=== PATIENT | female | born 1960 | race Caucasian/White ===

== ENCOUNTER 2018-12-14 18:51 | Inpatient (IN) | payer OTHER ==
[~2018-12-14] VITALS: Ht 152.4 cm; Wt 73.9 kg
[2018-12-14 19:17] VITALS: BP 155/110
[2018-12-14 20:57] LABS: AMP/METHAMP Negative (Negative); BARBITURATES Negative (Negative); BENZODIAZEPINES POSITIVE (Negative); COCAINE Negative (Negative); METHADONE Negative (Negative); OPIATES Negative (Negative); PCP Negative (Negative)
[2018-12-14 21:30] LABS: ABSOLUTE NEUTROPHILS 5.5 thou/uL (1.4-8.2); BASOPHILS 0.5 % (0.0-2.0); HEMATOCRIT 41.2 % (37.0-47.0); HEMOGLOBIN 14.1 gm/dL (12.0-15.0); LYMPHOCYTES 29.1 % (24.0-44.0); MCH 31.3 pg (26.0-34.0); MCHC 34.2 g/dL (28.0-37.0); MCV 91.6 fL (80.0-100.0); MONOCYTES 8.1 % (1.0-8.0); PLATELET COUNT 180 thou/uL (150-400); POLYS 62.3 % (36.0-66.0); RDW 14.8 % (10.5-14.5); WBC 8.9 thou/uL (4.0-11.0)
--- NOTE | 2018-12-14 21:39 | NUR ---
PATIENT REMAINS IN TRIAGE AREA
[2018-12-14 21:43] LABS: CALCIUM 10.3 mg/dL (8.5-10.1); CREATININE 0.8 mg/dL (0.6-1.0); POTASSIUM 3.7 mmol/L (3.5-5.1)
[2018-12-14] MEDS ORDERED: QUETIAPINE FUM100 MG PO (22:00)
[2018-12-14] MEDS ORDERED: REMERON15 MG PO (22:01)
[2018-12-14] MEDS ORDERED: PROZAC 20 MG20 MG PO (22:01)
[2018-12-14] MEDS ORDERED: DIVALPROEX SOD500 M1 PO (22:02)
[2018-12-14] MEDS ORDERED: PROPRANOLOL 1010 MG PO (22:02)
[2018-12-14] MEDS ORDERED: TRAZODONE 150150 M1 PO (22:03)
[2018-12-14] MEDS ORDERED: NORVASC10 MG PO (22:03)
[2018-12-14] MEDS ORDERED: ERGOCALCIF50000 UNIT PO (22:04)
[2018-12-14] MEDS ORDERED: ST. JOSEPH ASPI81 M1 PO (22:05)
[2018-12-14] MEDS ORDERED: NICOTINE LOZENGE4 MG DISSOLVE (22:05)
[2018-12-14] MEDS ORDERED: TYLENOL325 MG PO (22:06)
[2018-12-14 22:31] VITALS: BP 155/110
[2018-12-14 23:24] VITALS: BP 171/114
[2018-12-14 23:46] VITALS: BP 188/130
[2018-12-15 01:03] VITALS: BP 188/130
--- NOTE | 2018-12-15 01:20 | NUR ---
PT ADMITTED PER CART AT 2129. ANXIOUS AND DEPRESSED. WANTING XANAX. NOTIFIED. KLONOPI 0.5 MG PO AND DEPAKOTE 500MG PO TONIGHT. ABLE TO PROVIDE A CURSORY HISTORY, BUT HAS SOME MEMORY IDSSUES SHE IS POST CVA. AMBULATORY AND ABLE TO TOILET WITH ASSIST. ACCOMPANIED BY DAUGHTER WHO PROVIDED SOME HISTORY. RESTING COMFORTABLY AT THIS TIME.
[2018-12-15 08:18] VITALS: BP 154/80
--- NOTE | 2018-12-15 09:09 | EKG ---
[place] [address] [address] [facility] [place] [address] ELECTROCARDIOGRAM REPORT Name: TARI SCHULZ Room #: 518[facility] ADM IN M.R.#: [id number] ������������������ Admission: 12/14/18 ������������������ Attend Phys: Alf Momin DO Discharge: ������������������ Date of : 56 Report #: [id number] ����������������������������������������������������������������� [id number] THIS REPORT FOR: //name// [facility] ED Test Date: 2018-12-14 Test Time: 21:28:28 Pat Name: TARI SCHULZ Department: Room: [facility] Gender: F Supervising Nurse: AMILCAR : 1960 Requested By: Sheron Chapa Order Number: [id number] MD: Cuba Owusu Measurements Intervals Roosevelt Rate: 78 P: 43 FL: 146 QRS: -19 QRSD: 95 T: 3 QT: 346 QTc: 395 Interpretive Statements Sinus rhythm Borderline left axis deviation Borderline T wave abnormalities No previous ECG available for comparison Electronically Signed On 12-15-2018 9:09:35 CDT by Cuba Owusu [email or web address] ��������������������������������������������� <ELECTRONICALLY SIGNED> ���������������������������������������� By: Cuba Owusu MD, [facility] ��������������������������������������������� 12/15/18908 27 27 Cuba Owusu MD, FACC /EPI
[2018-12-15 11:53] VITALS: BP 154/80
--- NOTE | 2018-12-15 13:50 | NUR ---
ASSUMED PATIENT CARE AT 0715 A.M. THIS DATE. PATIENT SITTING CALMLY IN THE LARGE GROOUP ROOM, AT DR TABLE AT THAT TIME. HOWEVER, PATIENT ATE ONLY 25% OF BREAKFAST. SHE THEN BECAME OBVIOUSLY ANXIOUS, SHAKING AT HER HANDS, STATING "I NEED SOMETHING FOR ANXIETY." NURSE EDUCATED PATIENT THAT SHE HAD SCHEDULED ANTI-ANXIETY MEDICATION AND WAS ADMINISTERED CLONEXEPAM FOR ANXIETY AT 0600. NEXT DOSE AT 1400. PATIENT BECAME INCREASINGLY ANXIOUS, INCLUDING CRYING, REPEATEDLY ASKING FOR SOMETHING FOR ANXIETY. AT APPROXIMATELY 11:15 AM, NEW ORDER FOR LOREZEPAM 0.5 MG TIMES ONE. NURSE ADMINISTERED ORDERED DOSE AT 11:25, AFTER ACKNOWLEDGING THE ORDER. PATIENT WAS OBSERVED LYING ON SOFA IN LARGE GROOUP ROOM AT THAT TIME; NURSE HAD HER SIT UP AND TAKE HER MED, THEN REQUESTED THAT SHE GO TO HER ROOM TO LIE DOWN IF TIRED. PATIENT COMPLIED AT THAT TIME, AND IS NOW UP FOR SW GROUP THERAPY IN SMALL GROUP ROOM.
--- NOTE | 2018-12-15 18:18 | NUR ---
PATIENT HAD ELAVATED BLOOD PRESSURE OF 155/122, PULSE 104 LEFT ARM, AND 158/[address] BAY NOTIFIED, ONE TIME ORDER FOR CLINIDINE 0.1MG NOW NOTED AND CARRIED FORWARD.
--- NOTE | 2018-12-15 19:55 | NUR ---
ASSUMED CARE OF THE PT AT 1945PM. THE PT HAS BEEN LYING ON THE COUCH SLEEPING SINCE THIS CONFERENCE COORDINATOR CAME ON DUTY. DENIES ANY PAIN AT THIS TIME. REMIANS ON 12 MINUTE CHECKS FOR HER SAFETY.
[2018-12-15 20:05] VITALS: BP 135/83
--- NOTE | 2018-12-15 23:19 | H ---
[facility] [place] [address] HISTORY AND PHYSICAL Name: TARI SCHULZ Room #: 518B-B ADM IN M.R.#: [id number] Admission: 12/14/18 ������������������ Attend Phys: Alf Momin DO Discharge: ������������������ Date of : 56 Report #: [id number] THIS REPORT FOR: //name// CC: Alf Momin Roland Akkulugari DATE OF SERVICE: 12/15/2018 INPATIENT PSYCHIATRIC EVALUATION ATTENDING PHYSICIAN: Alf Momin DO ELECTRIC REFRIGERATOR SERVICER: Giorgi Whitaker MD REASON FOR ADMISSION: Presenting from the [facility] due to "erratic behavior." They did not feel equipped to manage. SNF staff called the patient's daughter stating she needs to be seen in ED until she could be placed in other facility tomorrow. The patient's daughter felt she appeared manic last week and is concerned she may be withdrawing from benzodiazepines, states her Xanax was stopped one week ago and she was prescribed Klonopin in its place. HISTORY OF PRESENT ILLNESS: This is a 58-year-old female sent from the [facility] to the Emergency Room at [facility]. The patient is at a nursing facility in [place], they were seeking Geriatric-Psychiatry evaluation. The patient interestingly had a similar episode to this in 07/2018 when she was admitted medically at [facility]. She was seen by their sealed psychiatrist, Dr. Noonan and his colleagues. The patient reports about an 8-month history at her current nursing facility the issues surrounding why she continues to have trouble there is unclear. From interview with the patient, she is very anxious and she is seeking Xanax. According to her, she has been on Xanax 0.5 mg 4 times a day. I did speak with the patient's daughter, Dorcas Zapata. The patient was seen by her outpatient psychiatrist, Dr. Gaspar, he is a resident in [facility] around 12/03/2018 and apparently orders were given to switch her from Xanax to clonazepam and it is unclear if that was carried out. Nonetheless, the patient has had a number of witt behavioral issues including on 12/05/2018 attempting to catch a cab to go to her [id number], they called her daughter, Dorcas, advised this was not a good deal. In addition, the patient had increased anxiety. On 12/03/2018, she was reportedly started on Risperdal at bedtime, showing improvement. On 12/09/2018, resident had increased confusion, tearfully, unbalanced at times and that was the last nursing note I have other than the house physician requesting to be seen by Psychiatry for adjustment of medication. REVIEW OF SYSTEMS: Review of systems for this patient is somewhat difficult per my interview today in the ER. [address] [address] HISTORY AND PHYSICAL Name: TARI SCHULZ Room #: 518B-B ADM IN M.R.#: [id number] Admission: 12/14/18 ������������������ Attend Phys: Alf Momin DO Discharge: ������������������ Date of : 56 Report #: [id number] CONSTITUTIONAL: Denies fever or chills. EYES: Denies blurry vision. HENT: Denies runny nose or sore throat. CARDIOVASCULAR: Denies chest pain. RESPIRATORY: Denies shortness of breath. GASTROINTESTINAL: Denies abdominal pain. GENITOURINARY: Denies dysuria or hematuria. MUSCULOSKELETAL: Denies joint pain. SKIN: Denies rash. NEUROLOGIC: Denied weakness. She was using a walker. Psychiatrically, reported severe anxiety. MEDICATIONS: At the nursing facility are as follows; reportedly Seroquel 100 mg at bedtime, mirtazapine 50 mg at bedtime, fluoxetine 20 mg p.o. daily, Depakote 500 mg p.o. daily, propranolol 10 mg p.o. b.i.d., amlodipine mesylate 10 mg p.o. daily, trazodone 150 mg p.o. at bedtime, ergocalciferol 50,000 international units p.o. q. 7 days, nicotine lozenge, aspirin, acetaminophen 650 p.o. q. 6 hours p.r.n. Additional history from her [facility] records; she has been diagnosed with depression, bipolar disorder, also reportedly schizoaffective disorder, received treatment at [facility] for years, Dr. Gaspar is her doctor. She was on Depakote for seizure and was on Prozac. She has reported history of mood swings; reports suicidal thoughts in the past, but never made attempt. Last hospitalization prior to her 07/2018 admission at [facility] was 05/2018 at for depression and mood swings. SUBSTANCE USE HISTORY: Remote history of drinking alcohol, she states in her 30s. She smokes 1 pack a day. Interestingly, in the [facility] notes, she last used alcohol a week prior to her [facility] admission and according to [facility] was minimizing the extent of her amphetamine use. Also, interestingly at that time in July, she reported she used amphetamines twice with her brother. LEGAL HISTORY: Unremarkable. History of violence denied. MEDICAL HISTORY: Essential hypertension, tobacco use disorder. She had delirium when she was found down and brought to [facility] in 07/2018. ALLERGIES: LITHIUM, TETANUS AND DIPHTHERIA TOXOIDS. SOCIAL HISTORY: She has been living in a half-way in the last 6 months at the [facility], has a payee, has 2 children, her son is in [place]. Her daughter is aware she is in the hospital. PROTECTIVE FACTORS: She has payee on social security disability. Reportedly, had a case management at [facility] [address] [place] [place] [address] HISTORY AND PHYSICAL Name: TARI SCHULZ Room #: 518B-B ADM IN [facility].#: [id number] Admission: 12/14/18 ������������������ Attend Phys: Alf Momin, Discharge: ������������������ Date of : 56 Report #: [id number] WEAKNESSES: Substance use history, noncompliance, difficulties with facility working with family. It should be noted the final psychiatry note from her 07/2018 hospitalization at [facility], the patient does not appear to have cognitive ability to make decision to leave against medical advice. They advised discontinuing fluoxetine, discontinuing alprazolam, starting sertraline, continuing trazodone, starting Seroquel 25 mg q. 4 hours p.r.n., continue Depakote 500 mg daily. LABORATORY DATA: Laboratories this admission, CBC; white count 8.9, H and H 14.1 and 41.2, platelet count 180,000. Chemistry; sodium 136, potassium 3.7, chloride 97, bicarb 27, BUN 9, creatinine 0.8, glucose 134, calcium 10.3. Toxicology; Depakote level was 99, serum alcohol less than 10. PHYSICAL EXAMINATION: VITAL SIGNS: Today, temperature 36.3, pulse rate 76, respirations 18, BP 154/80. MUSCULOSKELETAL: Ambulates with walker, somewhat cautious gait. MENTAL STATUS EXAM: This is a well-developed, disheveled female appearing at least stated age. Attention intact. Concentration limited. Speech, normal volume, increased rate, normal tone. Thought process is linear, focused on benzodiazepines. Psychomotor agitation. No psychomotor retardation. Mood and affect was congruent, dysphoric, anxious, irritable. Memory not formally tested, known to be impaired. Denied SI, HI. Reported auditory hallucinations prior to start of Risperdal, but was vague about this. Insight limited. Judgment limited. Fund of knowledge below average. FORMULATION: A 58-year-old female brought from nursing facility to [facility] for increased anxiety and behavioral problems. 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 PLAN: Evaluate, stabilize, and obtain collateral. At this point, the patient has no valid decision maker and her ability to give consent is certainly in question. Regarding her current medications, I have increased her bedtime quetiapine to 150 mg. She is getting 25 mg b.i.d. during the day of Seroquel. We tried a test dose of lorazepam 0.5 mg; otherwise, she is getting clonazepam 0.5 mg 4 times a day, so I would like to limit her getting multiple benzodiazepines. She is on Inderal 10 mg twice a day, we will have to watch her heart rate; docusate; amlodipine 10 mg daily. I have asked the social media marketing manager to [facility] [address] [place] [address] HISTORY AND PHYSICAL Name: TARI SCHULZ Room #: 518B-B ADM IN M.R.#: [id number] Admission: 12/14/18 ������������������ Attend Phys: Alf Momin DO Discharge: ������������������ Date of : 56 Report #: [id number] look into a family meeting later in the week with her daughter and her son by phone. ESTIMATED LENGTH OF STAY: 10-14 days. Time spent on interview, review of records and coordination of care of this patient was approximately 90 minutes. ��������������������������������������������� <ELECTRONICALLY SIGNED> ���������������������������������������� By: Alf Momin DO ��������������������������������������������� 12/15/18 2319 1340 [id number] Alf Momin DO /nt
[2018-12-15 23:58] VITALS: BP 120/62
--- NOTE | 2018-12-16 03:25 | NUR ---
THE PT DID GET UP TO TAKE HER MEDICATIONS EARLIER IN THE SHIFT, WALKED AROUND THE UNIT, THEN WENT BACK TO BED. DURING THE NOC SHIFT, SHE CAME OUT OF HER ROOM, WALKING WITH HER WALKER X 1, THEN CAME OUT OF HER ROOM WITHOUT HER WALKER, ASSISTED HER BACK TO BED WITH THE ASSISTANCE OF TWO. BOTH TIMES SHE CAME OUT OF HER ROOM WITH HER EYES CLOSED.
--- NOTE | 2018-12-16 06:36 | NUR ---
THE PT SLEPT 7 HOURS LAST NIGHT. THE PT REMAINS SEDATED THIS AM, HELD HER CLONIPINE THIS AM.
[2018-12-16 14:00] VITALS: BP 118/82
--- NOTE | 2018-12-16 16:55 | NUR ---
SW completed SLUMS. Pt was very emotional, and crying due to her scoring 12/30 which is catergorize a Major Neurocognitive Disorder. Pt is afraid that she will at young age as her father. Pt stated that she wanted to leave with her son-yo, and daughter in go smoke a cigarette. Pt daughter stated that she have to go into a memory care unit. Pt stated that she does not want to alone. SW provided pt daughter with my contact information to assist withi finding nursing facility. SW will follow-up with pt upon discharge.
--- NOTE | 2018-12-16 17:00 | NUR ---
ELLEN met with pt daughter, and Dr. Momin concerning diagnosis, and temporarily placement. Pt daughter stated that she will be attending [facility] assisted living to see if she will be able to stay there for two months, and then move her into long-term placement or to the with her. SW provided my contact information that I may send a referral to the nursing facility. ELLEN will follow-up with pt upon discharge.
[2018-12-16 19:59] VITALS: BP 128/91
--- NOTE | 2018-12-16 21:36 | NUR ---
ASSUMED CARE OF THE PT AT 2000 PM. THE PT HAS BEEN SLEEPING IN THE DAYROOM. ALERT ET ORIENTED X 2. MAKES NEEDS KNOWN. WALKS WITH A STEADY GAIT, USES HER WALKER. DENIES SI/HI, ANXIETY AND DEPRESSION. DENIES A/V HALLUNICATIONS. REMAINS ON 12 MINUTE CHECKS.
--- NOTE | 2018-12-17 04:15 | NUR ---
THE PT HAS BEEN SLEEPING MOST OF THE NIGHT, BUT DOES GET UP TO USE THE BATHROOM FREQUENTLY, HAS AN UNSTEADY GAIT. REMAINS ON 12 MINUTE CHECKS.
--- NOTE | 2018-12-17 06:03 | NUR ---
THE PT SLEPT 6 HOURS LAST NIGHT.
[2018-12-17 07:45] VITALS: BP 101/52
[2018-12-17 08:30] VITALS: BP 122/89
--- NOTE | 2018-12-17 08:30 | NUR ---
CLIENT STATED SHE HAS ALZHIEMERS DZ AND HER FATHER FROM IT AND IT WAS HARD. SHE IS UPSET ABOUT HER DIAGNOSIS. UP AD ALEA. SLOW WALK ALMOST LIKE PARKINSONS. DENIES ANY PAIN TODAY. LUNGS CLEAR.
[2018-12-17 09:00] VITALS: BP 122/89
--- NOTE | 2018-12-17 10:30 | NUR ---
CLIENT APPOLIGIZED TO NURSE ABOUT CURSING AT HER YESTERDAY.
--- NOTE | 2018-12-17 13:55 | NUR ---
CLIENT LYING ON COUCH IN DINNING ROOM, DIDN'T PARTICIPATE WITH SOCIAL GROUP TODAY.
[2018-12-17 15:08] VITALS: BP 122/89
--- NOTE | 2018-12-17 15:50 | NUR ---
PT WANTED TO USE THE PHONE, SHE CALLED THE POLICE AND WANTED SOMEONE TO PICK HER UP AND GO OUTSIDE AND SMOKE. PT HANDED THIS NURSE THE PHONE AND IT WAS LOCAL POLICE DEPARTMENT. DR. VELEZ AWARE AND ORDERS OBTAINED FOR NO PHONE CALLS FOR 24 HOURS. ALSO RECIEVED ORDER FOR NICOTINE REPLACEMENT.
--- NOTE | 2018-12-17 15:58 | NUR ---
Pt was very emotional today. Pt called her daughter in told her that she will once she leaves here due to her not wanting to blunt with Dementia. Pt stated that she would like to smoke a cigarette one last time before she leaves this earth. Pt begin cursing at her daughter once the the daughter explained that she will not , and she unable to smoke a cigarette due to her been in the hospital. Pt begin throwing the phone on the social media developer desk, and walked out the office cursing. Pt stated that she is been held against her will, and she want to go home. SW de-escalate the situation by explaining to the pt that she will go home once her medication is reguluated, and the family find a fdc for her. SW explained that she is suffering from Dementia, and depression. SW stated that she will have another therapy session on Friday, December 21, 2018.
--- NOTE | 2018-12-17 17:00 | NUR ---
OFFERED PT NICOTINE GUM. PT REFUSED AT THIS TIME AND STATED SHE WAS GOING TO TAKE ONE IN THE MORNING. SHE WANTED TO LAY DOWN AND REST ON COUCH.
[2018-12-17 19:32] VITALS: BP 150/105
--- NOTE | 2018-12-17 22:20 | NUR ---
ORIENTED X3, SAYS, "I have alzheimers". TOOK ALL MEDS EXCEPT FOR COALACE. DENIES BM TODAY, REPORTS HAVING ONE YESTERDAY. REQUESTED TO USE PHONE SEVERAL TIMES. REMINDED THAT SHE IS NOT ALLOWED TO USE PHONE FOR 24 HOURS DUE TO CALLING THE POLICE FOR A NON EMERGENCY SITUATION.
--- NOTE | 2018-12-18 04:55 | NUR ---
UP AND AMBULATING IN THE HALLS AND SITTING OR LYING ON THE COUCH IN THE DAY ROOM.
[2018-12-18 07:00] VITALS: BP 29/84
[2018-12-18 10:46] VITALS: BP 126/84
[2018-12-18 11:33] VITALS: BP 126/84
--- NOTE | 2018-12-18 13:41 | NUR ---
PATIENT SUSPICIOUS ABOUT MEDICATIONS THIS AM; HOWEVER, AFTER EXPLAINING MEDICATIONS BEING ADMINISTERED, COMPLIANT WITH MEDICATIONS. ATE PARTIAL BREAKFAST. ALSO ATE ABOUT 50% OF LUNCH, THEN BECAME ANGRY AND DEMANDING TO GO HOME. DR. VELEZ SPOKE TO PATIENT; HOWEVER, SHE REQUESTED TO BE RELEASED AMA. SHE THEN AGREED TO ALLOW DR. VELEZ TO SPEAK WITH HER DAUGHTER BEFORE DECISION ON DISCHARGE. CONTINUE TO MONITOR.
--- NOTE | 2018-12-18 18:11 | NUR ---
PATIENT HAS NOT REQUESTED ANY NICORETTE GUM THIS SHIFT. NURSE OFFERED GUM AT 1800, PATIENT DECLINED OFFER. PATIENT HAS BEEN DROWSY THROUGHOUT THE DAY, OFTEN LYING ON SOFA IN D.R., NAPPING.
[2018-12-18 19:31] VITALS: BP 114/79
--- NOTE | 2018-12-18 20:16 | NUR ---
ASSUMED CARE @ 19:15. ON COUCH LYING DOWN IN DAY ROOM. AWAKENED TO VOICE AND ANSWERED ASSESSMENT QUESTIONS WITH "I GOT ALZHEIMERS, WHEN WILL I ?" A&OX3 DOES NOT KNOW THAT SHE IS AT [facility]. DOES STATE THAT SHE IS IN REHAB. LUNGS CTA, HRRR, ABD NORMOACTIVE.
--- NOTE | 2018-12-19 03:09 | NUR ---
IN BED, EYES CLOSED, RESPIRATIONS EVEN AND UNLABORED.
--- NOTE | 2018-12-19 08:00 | NUR ---
PT UP THIS AM. NO C/O PAIN. WALKING WITH SHUFFLED GAIT. EATING BREAKFAST. AFTER BREAKFAST LYING ON COUCH IN DINNING ROOM. UNALBE TO GIVE MEDS DUE TO SLEEPING.
[2018-12-19 09:00] VITALS: BP 130/79
--- NOTE | 2018-12-19 10:00 | NUR ---
JOSAFAT WOKE UP PT FOR COMMUNION. SHE ACCEPTED. ADM MEDS AT THIS TIME. WANTING DAUGHTER TO VISIT.
--- NOTE | 2018-12-19 10:30 | NUR ---
TALKED TO DAUGHTER ON PHONE AND WAS APPROPRIATE. DAUGHTER STATED SHE COMING TO SEE HER AT 4PM.
[2018-12-19 11:01] VITALS: BP 130/79
--- NOTE | 2018-12-19 15:03 | NUR ---
PT COORAPERATING IN GROUP THIS AFTERNOON.
[2018-12-19 20:11] VITALS: BP 114/78
--- NOTE | 2018-12-19 20:56 | NUR ---
ASSUMED CARE @ 19:30. IN BED, AROUSED EASILY AND A&O X 2-3. SUGGESTED THAT SHE CHANGE INTO NIGHT CLOTHES AND BRUSH TEETH BEFORE GOING TO BED FOR THE NIGHT. PROVIDED HOSPITAL GOWN AND PIJAMA PANTS. PATIENT DRESSED IN NIGHT CLOTHES AND BRUSHED TEETH. SAYS THAT SHE IS HAPPY, IS WORRIED THAT HER DAUGHTER DID NOT COME SEE HER TODAY. REMINDED THAT SHE TALKED TO DAUGHTER WHO SAID THAT SHE NEEDED TO GOTO ONE OF THE [employer] SPORTS EVENTS. ABLE TO NAME HER 3 GRANDCHILDREN AND DAUGHTER BY NAME.
[2018-12-20 03:00] VITALS: BP 114/78
--- NOTE | 2018-12-20 08:27 | NUR ---
PATIENT'S VALPORIC ACID LEVEL ON 12/18 33 (L). PATIENT CURRENTLY TAKING 1,250 MG OF DEPAKOTE AT HS.
[2018-12-20 09:49] VITALS: BP 102/73
--- NOTE | 2018-12-20 12:10 | NUR ---
Date of Admission: 12/14/18 Date of Activity Therapy Assessment:12/18/18 Activity Goal:To increase leisure awareness and positive coping skills to aid in frustration tolerance and impulse control. Initial Goal:To attend 1 group per day Weekly progress towards goal: On track with attendance, but not participation level. Group participation level: Minimal Behaviors observed: Poor boundaries with peers. Easily distracted. Sleeping during group. Plan: No change towards goal
--- NOTE | 2018-12-20 12:36 | NUR ---
PATIENT UP FOR BREAKFAST AND LUNCH, ATE 100% OF BOTH OF EACH. COMPLIANT WITH MEDICATIONS THIS A.M. LIES DOWN IN BETWEEN MEALS. PARTICIPATED IN MORNING GROUP. CALLED THOMAS CLARKE, AT THIS TIME. HAD ALSO CALLED HER THIS A.M. STAFF MONITORS CALLS TO ENSURE THAT SHE DOES NOT MAKE INAPPROPRIATE CALLS ([phone]). CONTINUE TO MONITOR.
[2018-12-20 19:24] VITALS: BP 127/78
--- NOTE | 2018-12-20 19:51 | NUR ---
ASSUMED CARE OF THE PT AT 1945 PM. THE PT WAS SITTING IN THE BED WHEN THIS RECORDS CLERK CAME ON DUTY. CURRENTLY SHE IS SITTING IN GROUP AT THIS TIME. ALERT ET ORIENTED X 3. HAS BEEN ASKING FOR HER MEDICATIONS, INSTRUCTED THE PT THAT SHE COULD NOT GET THEM UNTIL AFTER GROUP. WALKS WITH A STEADY GAIT. DENIES SI/HI, ANXIETY, DEPRESSION, A/V HALLUNICATIONS. REMAINS ON 12 MINUTE CHECKS.
--- NOTE | 2018-12-21 03:09 | NUR ---
THE PT HAS BEEN UP AND DOWN FROM HER BED X 4, SO FAR THIS NOC SHIFT. THE BED ALARM KEEPS GOING OFF AND ALERTING STAFF. SHE WALKS WITH AN UNSTEADY GAIT. REMAINS ON 12 MINUTE CHECKS.
--- NOTE | 2018-12-21 06:07 | NUR ---
THE PT SLEPT 7 HOURS LAST NIGHT.
[2018-12-21 07:05] VITALS: BP 111/84
[2018-12-21 14:20] VITALS: BP 102/76
[2018-12-21 20:03] VITALS: BP 110/79
--- NOTE | 2018-12-22 05:54 | NUR ---
PATIENTS CARE WERE ASSUMED AT SHIFT CHANGE. PATIENT WAS ASSESSED AND MEDS WERE PASSED. HOURLY ROUNDING WAS DONE AND PATIENT DID APPER TO BE SLEEPING. PATIENT DID SLEEP EIGHT HOURS THIS SHIFT. THE BED IS IN A LOW AND LOCKED POSITION. THE BED ALARM IS ON.
--- NOTE | 2018-12-22 07:34 | NUR ---
Assumed care of patient, awakens easily, ambulating in [place], requesting phone to call dtr. Pt informed that dtr requested no calls from her until afternoon. Denies pain or discomfort at this time.
[2018-12-22 08:39] VITALS: BP 119/81
[2018-12-22] MEDS ORDERED: DEPAKOTE ER500 MG PO (10:14)
[2018-12-22] MEDS ORDERED: DEPAKOTE ER250 MG PO (10:15)
[2018-12-22] MEDS ORDERED: SEROQUEL 100 M100 M1 PO ×2 (10:15→10:16)
[2018-12-22] MEDS ORDERED: ZOFRAN 4 MG ORAL4 MG DISSOLVE (10:17)
[2018-12-22] MEDS ORDERED: PEPCID20 MG PO (10:17)
[2018-12-22] MEDS ORDERED: COLACE 100 MG100 MG PO (10:17)
--- NOTE | 2018-12-22 11:17 | NUR ---
Patient Name: TARI SCHULZ Admission Date: 12/14/18 DISCHARGE PLAN: Pt will be discharge to [facility]. Care Assessment: Pt was assessed by Dr. Momin, and he diagnose with Major Neurocognitve Disorder. Pt will need assistance with care, and need a memory care unit. Level II Assessment: None Transportation: Pt will be transported by the nursing facility through [facility]. Special Instructions/Notes: DISCHARGE TO FACILITY: Memory Care Unit. Facility: [facility] Fax: Address: [address] [place] [address] Contact Name: Kevin PCP: [facility] Facility medical provider Psychiatrist: [facility] facility psychiatrist
--- NOTE | 2018-12-22 11:28 | NUR ---
1100: Shower completed, inventory sheet done with patient, dc instructions reviewed with patient. Dc instructions prepared to send with patient to [facility]. 1128: Attempted to call report to [facility], message left with Christal to call [facility] back to rec report.
--- NOTE | 2018-12-22 13:16 | NUR ---
DC via [employer], w/c used for dc to transportation, scripts, instructions and personal belongings with patient.
--- NOTE | 2018-12-24 14:42 | D ---
[facility] [place] [address] DISCHARGE SUMMARY Name: TARI SCHULZ Room #: 518B-B [facility] M.R.#: [id number] Admission: 12/14/18 ������������������ Attend Phys: Alf Momin DO Discharge: 12/22/18 ������������������ Date of : 56 Report #: [id number] THIS REPORT FOR: //name// CC: Alf Momin Roland Akkulugari DATE OF SERVICE: 12/22/2018 ATTENDING: Alf Momin DO. HOSPITALIST: At the time of discharge, Parish Johnson MD. 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 MEDICAL COMORBIDITIES: At the time of discharge, hypertension, nausea, GERD. DISCHARGE PLAN: Discharge back to the [facility] facility. She already had essentially been in memory care there. She has no DPOA or guardian. The patient will need 21/04 supervision. She has not had a followup blood level since level of 33, recommending that to be done of this week at 1800 hours. LABORATORY RESULTS: This admission CBC: H and H 14.1 and 41.2. White count 8.9, platelet count 180,000. Chemistry: Sodium 136, potassium 3.7, chloride 97, bicarbonate 27, anion gap 12, BUN 9, creatinine 0.8, estimated GFR 73, glucose 134, calcium high at 10.3. Depakote level during this admission showed an initial aberrant Depakote level of 99 on 500 mg a day. Repeat showed a low at 33. DISCHARGE MEDICATION: Depakote ER 1250 mg p.o. at bedtime. Also, this admission, quetiapine was titrated to 100 mg p.o. b.i.d. during the day and 250 mg at bedtime, so 450 mg a day total; docusate 100 mg p.o. b.i.d. for bowel motility; famotidine 20 mg p.o. at bedtime, ergocalciferol 50,000 international units p.o. every 7 days; aspirin 81 mg p.o. daily for cardioprotection; acetaminophen 650 mg p.o. q. 6 hours p.r.n. for pain level 1-5; propranolol was changed to 10 mg p.o. b.i.d. for akathisia and anxiety; amlodipine 10 mg p.o. daily for hypertension, hold if BP less than 100 systolic and the propranolol should be held if heart rate is less than 60. REASON FOR ADMISSION: She is admitted through the Emergency Room and she had been sent from [facility] due to "erratic behavior." HOSPITAL COURSE: The patient was admitted to Geriatric Psychiatry Unit. She was frankly manic, delusional. The patient I believe had already been on a low [facility] [address] [place] [address] DISCHARGE SUMMARY Name: TARI SCHULZ Room #: 518B-B [facility] M.R.#: [id number] Admission: 12/14/18 ������������������ Attend Phys: Alf Momin DO Discharge: 12/22/18 ������������������ Date of : 56 Report #: [id number] dose of Seroquel. This was titrated upwards to cross 400 mg daily. I held off on doing further changes with the Depakote. We got a repeat blood level and that was increased to 1250 mg p.o. daily. The patient improved during the course of hospitalization, participated in groups. She was hyperfocused on going to live with her daughter. I do not know if she ever fully accepted that. We had several instances where her phone privileges were suspended in 24-hour increments due to calling 911 or abusive conversations towards her daughter. PHYSICAL EXAMINATION: VITAL SIGNS: Temperature 36.7, pulse 78, respirations 18, BP 110/79, O2 sat 100%. MUSCULOSKELETAL: Normal gait and station. MENTAL STATUS EXAM: This is a well-developed, disheveled female appearing stated age. Attention limited, concentration limited and speech slightly slowed. Thought process is linear and goal oriented. Thought content focused on discharge, not to return to nursing facility. No psychomotor agitation. No psychomotor retardation. Denied auditory, visual or tactile hallucination. Denied suicidal intent or plan. Denied hopelessness or helplessness. Denied homicidal intent or plan. Memory known to be impaired. Insight limited. Judgment limited. Fund of knowledge below average. PROGNOSIS: For this patient is guarded given the fact she is only 58. She is already in a memory care facility. She has numerous cognitive deficits including a SLUMS score of 12/30. ��������������������������������������������� <ELECTRONICALLY SIGNED> ���������������������������������������� By: Alf Momin DO ��������������������������������������������� 12/24/18 [id number] Alf Momin DO /nt
== END 2018-12-22 13:15 | DRG 885 ==
LOC: ER 18:51 → SBH 22:12 → EROBS 22:12 → SBH 23:23
PROVIDERS: Student in an Organized Health Care Education/Training Program; ADMIT Psychiatry & Neurology Psychiatry
DX: F25.0 Schizoaffective disorder, bipolar type (principal); F15.20 Other stimulant dependence, uncomplicated; F01.51 Vascular dementia, unspecified severity, with behavioral disturbance; I10 Essential (primary) hypertension; F41.0 Panic disorder [episodic paroxysmal anxiety]; F41.9 Anxiety disorder, unspecified; F32.9 Major depressive disorder, single episode, unspecified; Z88.8 Allergy status to other drugs, medicaments and biological substances; Z88.7 Allergy status to serum and vaccine; Z79.899 Other long term (current) drug therapy; F01.50 Vascular dementia, unspecified severity, without behavioral disturbance, psychotic disturbance, mood disturbance, and anxiety
CPT/HCPCS: 10880